=== PATIENT | male | born 1975 | race Caucasian/White ===

== ENCOUNTER 2016-09-24 08:41 | Emergency (ER) | payer BC, OTHER ==
[~2016-09-24] VITALS: Ht 170.2 cm; Wt 91.0 kg
[2016-09-24 08:52] VITALS: TEMP 36.9; Ht 170.2 cm; Wt 91.0 kg
[2016-09-24] MEDS ORDERED: IBUPROFEN 600 MG TAB PO STA (09:06)
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
[2016-09-24] MEDS ORDERED: IBUP-1050 PO (09:33)
[2016-09-24] MEDS ORDERED: OXYCODONE/ACETAMINOPHEN 5-325 TAB PO ONE ×2 (09:45→11:30)
--- NOTE | 2016-09-24 11:12 | DIAGNOSTIC IMAGING REPORT ---
RIGHT KNEE MRI HISTORY: Right medial knee pain. medial collateral ligament Right COMPARISON STUDY: None. TECHNIQUE: Multiplanar multisequence MRI of the right knee was performed according to standard department protocol without the use of contrast. FINDINGS: Menisci: The medial and lateral menisci are intact. Ligaments: The anterior and posterior cruciate ligaments are intact. The medial and lateral collateral ligaments are normal in appearance. Extensor mechanism: The quadriceps tendon and patellar ligament are intact. Articular cartilage and bone: The articular cartilage is intact. Best seen on sagittal image 7 there is a nondisplaced fracture at the lateral femoral condyle. There is also a nondisplaced fracture within the medial aspect of the medial femoral condyle. This is at the proximal attachment of the MCL. Mild marrow edema associated with these fractures. Joint effusion: Moderate lipohemarthrosis. Soft tissues: Soft tissue edema throughout the knee. IMPRESSION: 1. Nondisplaced fractures involving the medial and lateral femoral condyles. 2. Moderate lipohemarthrosis. 3. The menisci are intact. Electronically signed by: Abraham Ervin M.D. 09/24/2016 11:10 AM Dictated Date/Time: 09/24/2016 11:05 AM
[2016-09-24] MEDS ORDERED: OXYC-57 PO (12:15)
[2016-09-24 12:33] VITALS: BP 156/90; PULSE 103; O2SAT 97
== END 2016-09-24 12:34 | disposition home or self-care (01) ==
LOC: C.EDB 08:44 → C.EDA 12:34
DX: S72.414A Nondisplaced unspecified condyle fracture of lower end of right femur, initial encounter for closed fracture (principal); V43.52XA Car driver injured in collision with other type car in traffic accident, initial encounter; F17.200 Nicotine dependence, unspecified, uncomplicated

== ENCOUNTER 2020-07-27 08:39 | Inpatient (IN) ==
[2020-07-27] MEDS ORDERED: ACETAMINOPHEN 1,000 MG/100 ML VIAL IV STA (09:28)
[2020-07-27] MEDS ORDERED: SODIUM CHLORIDE 0.9% 1000ML 1,000 ML IV ONE (09:28)
[2020-07-27 10:07] LABS: Basophils # (auto) 0.01 K/uL (0-0.2); Basophils % (auto) 0.1 %; Eosinophils # (auto) 0.02 K/uL (0-0.5); Eosinophils % (auto) 0.2 %; Hematocrit (blood only) 46.4 % (42-52); Hemoglobin 16.1 g/dL (14.0-18.0); Immature Granulocytes # (auto) 0.02 K/uL (0.00-0.02); Immature Granulocytes % (auto) 0.2 %; Lymphocytes % (auto) 17.3 %; Mean Corpuscular Hemoglobin 31.6 pg (25-34); Mean Corpuscular Hgb Conc 34.7 g/dL (32-36); Mean Corpuscular Volume 91.2 fL (80-100); Mean Platelet Volume 9.9 fL (7.4-10.4); Monocytes # (auto) 1.06 K/uL (0.11-0.59); Monocytes % (auto) 10.2 %; Neutrophils # (auto) 7.51 K/uL (1.4-6.5); Platelet Count 223 K/uL (130-400); RDW Coefficient of Variation 12.5 % (11.5-14.5); RDW Standard Deviation 41.9 fL (36.4-46.3); Red Blood Count 5.09 M/uL (4.7-6.1); White Blood Count 10.42 K/uL (4.8-10.8)
[2020-07-27 10:17] LABS: Appearance Urine Clear (Clear); Bacteria Urine Automated Negative (Negative); Bilirubin Urine Negative (Negative); Blood Urine Negative (Negative); Color Urine Orange; Epithelial Cell Urine Auto 0-5 /lpf (0-5); Glucose Urine UA Negative (Negative); Ketones Urine Negative (Negative); Leukocyte Esterase Urine Negative (Negative); Nitrite Urine Negative (Negative); Protein Urine 1+ (Negative); RBC Urine Automated 0-4 /hpf (0-4); Specific Gravity Urine 1.023 (1.000-1.030); Urobilinogen Urine Negative (Negative)
[2020-07-27 10:27] LABS: BUN Creatinine Ratio 9.9 (10-20); Est GFR (African American) 87.3; Est GFR (Non-African American) 75.4
[2020-07-27 10:29] LABS: Albumin Globulin Ratio 0.9 (0.9-2); Bilirubin,Total 2.1 mg/dl (0.2-1); Globulin 4.4 gm/dl (2.5-4.0); Total Protein 8.4 gm/dl (6.4-8.2)
[2020-07-27] MEDS ORDERED: IOVERSOL 100ml IV ONE (10:30)
[2020-07-27] MEDS ORDERED: MoRPHine SULFATE 10 MG/ML CARP/VIAL IV STA (10:55)
--- NOTE | 2020-07-27 11:23 | CT Scan Report ---
CT OF THE ABDOMEN AND PELVIS WITH CONTRAST CLINICAL HISTORY: Lower abdominal pain. COMPARISON STUDY: None. TECHNIQUE: Following IV administration of 94 mL of Optiray-320, axial images of the abdomen and pelvi s were obtained from the lung bases to the proximal femurs. Images were reviewed in the axial, sagitt al, and coronal planes. IV contrast was administered without complication. Automated exposure contro l was utilized for the study. A dose lowering technique was utilized adhering to the principles of A MATI. CT DOSE: 746.55 mGy.cm FINDINGS: Minimal subpleural lower lung opacities are noted. Atelectasis is favored however an infect ious process could appear similar. No pneumatosis is present. There is hepatic steatosis. The spleen is mildly enlarged. The adrenal glands, kidneys and pancreas are unremarkable. There is no biliary or pancreatic ductal dilatation. There is no peripancreatic or pericholecystic infiltration. A subcenti meter hypodense lesion within the upper pole of the left kidney is too small to characterize. There i s no evidence for a bowel obstruction. Note is made of sigmoid diverticulosis. There is mild wall thi ckening of the sigmoid colon. There is moderate adjacent infiltration with a small amount of fluid. A few locules of extraluminal gas are noted. This represents a tiny contained perforation. No abscess is present. There are small fat-containing bilateral inguinal hernias. Major vasculature is patent. T here is no lymphadenopathy. IMPRESSION: 1. Findings consistent with acute sigmoid diverticulitis. Mild sigmoid colon wall thickening with mod erate inflammation and trace fluid. A few locules of extraluminal gas represent a tiny contained perf oration. No abscess. 2. Minimal subpleural opacities within the medial basilar segment of the right lower lobe. Atelectasi s is favored however an infectious process could appear similar. 3. Hepatic steatosis. 4. Mild splenomegaly ACT 112: Negative or not required by law. Electronically signed by: Hilario Patel M.D. 07/27/2020 11:21 AM
--- NOTE | 2020-07-27 11:32 | Emergency Department Note ---
Impression & Plan Sigmoid diverticulitis, Lower abdominal pain, Dehydration ED Provider Note NAME: SERENA PALMA AGE: 45 SEX: M ARRIVES VIA: Walk-In INFORMANT: Patient, ED PROVIDER(S): Trevor Gauthier MD CHIEF COMPLAINT: abdominal pain PLAN: Disposition: Admit. MEDICAL DECISION MAKING: The patient is a pleasant 45 y/o gentleman, previously healthy, who presents to the emergency department with worsening lower abdominal pain since yesterday. Patient reports no BM for past 2 days which is abnormal but he feels that sensation of pressure as if he needs to go. He further reports that he feels he has had weakened urine stream and urinating less then usual. He reports mild lumbar pain last week but denies having severe unilateral flank pain at any p oint. He denies nausea/vomiting, cough, congestion, CP, SOB, burning or blood with urination. He denies history of similar symptoms in the past. On arrival the patient is in NAD, AF, HR 100s and otherwise VSS. He appears clinically dry. He has mild lower abdominal tenderness with out guarding or rebound. No overt hernias appreciated. WBC, H/H, platelets wnl. Chemistry without acidosis. Total bilirubin 2.1 with direct bilirubin 0.4, nonspecific. Given no upper abd pain and AP and lipase wnl. Otherwise, LFTs and electrolytes unremarkable. UA negative. Covid19 RNA, NAAT was negative. CT abdomen pelvis performed and demonstrates sigmoid diverticulitis with few locules of extraluminal gas suggestive of tiny contained perforation. Patient ordered for Zosyn given microperforation. Findings and recommendation for admission reviewed with patient and he agrees. Case reviewed with SUYAPA Anderson general surgery PAC who agrees with medicine admission and treatment with IV ABX. They will be available for inpatient team consultation. Case d[facility]w Radha Diane [facility] Triage Nursing notes reviewed and agree them. Prior medical records reviewed Vital Signs: reviewed and remarkable for no significant abnormalities Differential diagnosis: Appendicitis, testicular torsion, infections, diverticulitis, UTI, obstruction, mesenteric ischemia, aortic pathology, inflammatory bowel disease, renal colic, PUD, pancreatitis, biliary pathology, hernia, volvulus, constipation, as well as other pathologies. ER treatment provided: See below. Diagnostics interpreted by me: Cardiac Monitoring: An order for continuous cardiac monitoring was placed and demonstrated NSR, 94 bpm, no ectopy. Laboratory studies: See below Imaging studies: CT OF THE ABDOMEN AND PELVIS WITH CONTRAST CLINICAL HISTORY: Lower abdominal pain. COMPARISON STUDY: None. TECHNIQUE: Following IV administration of 94 mL of Optiray-320, axial images of the abdomen and pelvis were obtained from the lung bases to the proximal femurs. Images were reviewed in the axial, sagittal, and coronal planes. IV contrast was administered without complication. Automated exposure control was utilized for the study. A dose lowering technique was utilized adhering to the principles of ALARA. CT DOSE: 746.55 mGy.cm FINDINGS: Minimal subpleural lower lung opacities are noted. Atelectasis is favored however an infectious process could appear similar. No pneumatosis is present. There is hepatic steatosis. The spleen is mildly enlarged. The adrenal glands, kidneys and pancreas are unremarkable. There is no biliary or pancreatic ductal dilatation. There is no peripancreatic or pericholecystic infiltration. A subcentimeter hypodense lesion within the upper pole of the left kidney is too small to characterize. There is no evidence for a bowel obstruction. Note is made of sigmoid diverticulosis. There is mild wall thickening of the sigmoid colon. There is moderate adjacent infiltration with a small amount of fluid. A few locules of extraluminal gas are noted. This represents a tiny contained perforation. No abscess is present. There are small fat-containing bilateral inguinal hernias. Major vasculature is patent. There is no lymphadenopathy. IMPRESSION: 1. Findings consistent with acute sigmoid diverticulitis. Mild sigmoid colon wall thickening with moderate inflammation and trace fluid. A few locules of extraluminal gas represent a tiny contained perforation. No abscess. 2. Minimal subpleural opacities within the medial basilar segment of the right lower lobe. Atelectasis is favored however an infectious process could appear similar. 3. Hepatic steatosis. 4. Mild splenomegaly ACT 112: Negative or not required by law. Electronically signed by: Hilario Patel M.D. 07/27/2020 11:21 AM Dictated: 07/27/201055Transcribed: 07/27/201055 Consultation(s): Carlin Abel, [place] general surgery PAC Devora Loyola [facility] PAC with Dr. Mills [facility] hospitalist. HPI: The patient is a pleasant 45 y/o gentleman, previously healthy, who presents to the emergency department with worsening lower abdominal pain since yesterday. Patient reports no BM for past 2 days which is abnormal but he feels that sensation of pressure as if he needs to go. He further reports that he feels he has had weakened urine stream and urinating less then usual. He reports mild lumbar pain last week but denies having severe unilateral flank pain at any point. He denies nausea/vomiting, cough, congestion, CP, SOB, burning or blood with urination. He denies history of similar symptoms in the past. ROS: See above HPI for pertinent positives & negatives. A total of 10 systems reviewed and were otherwise negative. PAST MEDICAL HISTORY:See Below PAST SURGICAL HISTORY:See Below FAMILY HISTORY:See Below SOCIAL HISTORY:See Below HOME MEDICATIONS:See Below ALLERGIES:See Below VITALS:See Below PHYSICAL EXAMINATION: GENERAL: Awake, alert, uncomfortable-appearing, in no distress HENT: Normocephalic, atraumatic. Oropharynx with dry mucous membranes and otherwise unremarkable. EYES: Normal conjunctiva. Sclera non-icteric. NECK: Supple. No nuchal rigidity. FROM. No JVD. RESPIRATORY: Clear to auscultation. CARDIAC: Tachycardic rate, normal rhythm. Extremities warm and well perfused. Pulses equal. ABDOMEN: Soft, non-distended. Mild lower abdominal tenderness to palpation. No rebound or guarding. No masses. RECTAL: Deferred. MUSCULOSKELETAL: Chest examination reveals no tenderness. The back is symmetrical on inspection without obvious abnormality. There is no CVA tenderne ss to palpation. No joint edema. LOWER EXTREMITIES: Calves are equal size bilaterally and non-tender. No edema. No discoloration. NEURO: Normal sensorium. No sensory or motor deficits noted. SKIN: No rash or jaundice noted. Trevor Gauthier MD Past Med/Surg History Medical History Alcohol use No known health problems Surgical History No significant past surgical history Family History Father Heart disease Mother Colorectal cancer Social History Smoking Status: Current every day smoker Tobacco Type: Smokeless Tobacco (Dip or Chew) Do You Dip or Chew Tobacco: Yes; Hx Alcohol Use: Yes Alcohol type: beer Alcohol Intake Frequency: 2-3 x/Week A lcohol Intake Frequency Comment: up to 6 pack a night 2-3x/week Hx Substance Use: No Preferred Language: Hebrew Communication Ability: Effective [place] Tower Loader Required: No Beliefs That Will Affect Care: None Current Living Situation: Spouse Other Information That Helps Us Care for You: No Feels Safe at Home: Yes Safety Concerns: Feels Safe At This Time Assistive Devices: None Allergies Allergies Allergy/AdvReac Type Severity Reaction Status Date / Time No Known Allergies Allergy Unverified 09/24/16 09:32 Home Meds Home Medications Medication Instructions Recorded Confirmed benzonatate 100 mg PO DAILY 07/27/20 07/27/20 Results & Data (ED) Vital Signs Vital Signs - 24 hr 07/27/20 08:57 07/27/20 09:45 07/27/20 09:50 Temperature 37.2 C Temperature Source Temporal Artery Scan Pulse Rate 106 H 98 H Pulse Rate from SpO2 Sensor Respiratory Rate 16 14 Respiratory Effort / Characteristics Non-Labored Spontaneous Respiratory Depth Normal Respiratory Pattern Regular Blood Pressure 115/78 128/69 Blood Pressure Mean 90 88 Blood Pressure Position Sitting Pulse Oximetry 96 95 Oxygen Delivery Method Room Air Room Air Sepsis Recent Fever Within 48 Hours No Sepsis New/Unexplained Change in Mental Status No Sepsis Action Taken by Nursing No Action Required 07/27/20 10:00 07/27/20 11:06 07/27/20 11:30 Temperature Temperature Source Pulse Rate 104 H 91 H 85 Pulse Rate from SpO2 Sensor 104 H 91 H 87 Respiratory Rate 23 21 20 Respiratory Effort / Characteristics Respiratory Depth Respiratory Pattern Blood Pressure 153/102 H 139/83 118/79 Blood Pressure Mean 119 101 92 Blood Pressure Position Pulse Oximetry 95 96 96 Oxygen Delivery Method Sepsis Recent Fever Within 48 Hours Sepsis New/Unexplained Change in Mental Status Sepsis Action Taken by Nursing 07/27/20 12:00 07/27/20 12:30 Temperature Temperature Source Pulse Rate 100 H 97 H Pulse Rate from SpO2 Sensor 101 H 97 H Respiratory Rate 16 17 Respiratory Effort / Characteristics Respiratory Depth Respiratory Pattern Blood Pressure 149/105 H 131/83 Blood Pressure Mean 119 99 Blood Pressure Position Pulse Oximetry 96 95 Oxygen Delivery Method Sepsis Recent Fever Within 48 Hours Sepsis New/Unexplained Change in Mental Status Sepsis Action Taken by Nursing Laboratory Data Attestation: I reviewed the patient's lab results. Result diagrams: 07/27/20 09:55 07/27/20 09:55 Lab Results 07/27/20 07/27/20 07/27/20 Range/Units 09:50 09:55 09:55 WBC 10.42 (4.8-10.8) K/uL RBC 5.09 (4.7-6.1) M/uL Hgb 16.1 (14.0-18.0) g/dL Hct 46.4 (42-52) % MCV 91.2 (80-100) fL MCH 31.6 (25-34) pg MCHC 34.7 (32-36) g/dL RDW Std Deviation 41.9 (36.4-46.3) fL RDW Coeff of Narciso 12.5 (11.5-14.5) % Plt Count 223 (130-400) K/uL MPV 9.9 (7.4-10.4) fL Immature Gran % (Auto) 0.2 % Neut % (Auto) 72.0 % Lymph % (Auto) 17.3 % [place] % (Auto) 10.2 % Eos % (Auto) 0.2 % Baso % (Auto) 0.1 % Neut # (Auto) 7.51 H (1.4-6.5) K/uL Lymph # (Auto) 1.80 (1.2-3.4) K/uL [place] # (Auto) 1.06 H (0.11-0.59) K/uL Eos # (Auto) 0.02 (0-0.5) K/uL Baso # (Auto) 0.01 (0-0.2) K/uL Immature Gran # (Auto) 0.02 (0.00-0.02) K/uL Sodium 139 (136-145) mmol/L Potassium 4.0 (3.5-5.1) mmol/L Chloride 110 H (98-107) mmol/L Carbon Dioxide 25 (21-32) mmol/L Anion Gap 4.0 (3-11) BUN 11 (7-18) mg/dl Creatinine 1.15 (0.6-1.4) mg/dl Est Cr Clr Drug Dosing 89.0 ml/min Est GFR ( Amer) 87.3 Est GFR (Non-Af Amer) 75.4 BUN/Creatinine Ratio 9.9 L (10-20) Glucose 97 (70-99) mg/dl Calcium 10.0 (8.5-10.1) mg/dl Total Bilirubin 2.1 H (0.2-1) mg/dl Direct Bilirubin (0-0.2) mg/dl AST 16 (15-37) U/L ALT 41 (12-78) U/L Alkaline Phosphatase 111 (45-117) U/L Total Protein 8.4 H (6.4-8.2) gm/dl Albumin 4.0 (3.4-5.0) gm/dl Globulin 4.4 H (2.5-4.0) gm/dl Albumin/Globulin Ratio 0.9 (0.9-2) Lipase 105 (73-393) U/L Urine Color [place] Urine Appearance Clear (Clear) Urine pH 7.0 (4.5-7.5) Ur Specific [place] 1.023 (1.000-1.030) Urine Protein 1+ H (Negative) Urine Glucose (UA) Negative (Negative) Urine Ketones Negative (Negative) Urine Blood Negative (Negative) Urine Nitrite Negative (Negative) Urine Bilirubin Negative (Negative) Urine Urobilinogen Negative (Negative) Ur Leukocyte Esterase Negative (Negative) Urine WBC (Auto) 1-5 (0-5) /hpf Urine RBC (Auto) 0-4 (0-4) /hpf U Hyaline Cast (Auto) 1-5 (0-5) /lpf U Epithel Cells (Auto) 0-5 (0-5) /lpf Urine Bacteria (Auto) Negative (Negative) COVID-19 Eval Order SARS-CoV-2, RNA, NAAT (NEGATIVE) 07/27/20 07/27/20 07/27/20 Range/Units 09:55 11:45 11:45 WBC (4.8-10.8) K/uL RBC (4.7-6.1) M/uL Hgb (14.0-18.0) g/dL Hct (42-52) % MCV (80-100) fL MCH (25-34) pg MCHC (32-36) g/dL RDW Std Deviation (36.4-46.3) fL RDW Coeff of Narciso (11.5-14.5) % Plt Count (130-400) K/uL MPV (7.4-10.4) fL Immature Gran % (Auto) % Neut % (Auto) % Lymph % (Auto) % [place] % (Auto) % Eos % (Auto) % Baso % (Auto) % Neut # (Auto) (1.4-6.5) K/uL Lymph # (Auto) (1.2-3.4) K/uL [place] # (Auto) (0.11-0.59) K/uL Eos # (Auto) (0-0.5) K/uL Baso # (Auto) (0-0.2) K/uL Immature Gran # (Auto) (0.00-0.02) K/uL Sodium (136-145) mmol/L Potassium (3.5-5.1) mmol/L Chloride (98-107) mmol/L Carbon Dioxide (21-32) mmol/L Anion Gap (3-11) BUN (7-18) mg/dl Creatinine (0.6-1.4) mg/dl Est Cr Clr Drug Dosing ml/min Est GFR ( Amer) Est GFR (Non-Af Amer) BUN/Creatinine Ratio (10-20) Glucose (70-99) mg/dl Calcium (8.5-10.1) mg/dl Total Bilirubin (0.2-1) mg/dl Direct Bilirubin 0.4 H (0-0.2) mg/dl AST (15-37) U/L ALT (12-78) U/L Alkaline Phosphatase (45-117) U/L Total Protein (6.4-8.2) gm/dl Albumin (3.4-5.0) gm/dl Globulin (2.5-4.0) gm/dl Albumin/Globulin Ratio (0.9-2) Lipase (73-393) U/L Urine Color Urine Appearance (Clear) Urine pH (4.5-7.5) Ur Specific [place] (1.000-1.030) Urine Protein (Negative) Urine Glucose (UA) (Negative) Urine Ketones (Negative) Urine Blood (Negative) Urine Nitrite (Negative) Urine Bilirubin (Negative) Urine Urobilinogen (Negative) Ur Leukocyte Esterase (Negative) Urine WBC (Auto) (0-5) /hpf Urine RBC (Auto) (0-4) /hpf U Hyaline Cast (Auto) (0-5) /lpf U Epithel Cells (Auto) (0-5) /lpf Urine Bacteria (Auto) (Negative) COVID-19 Eval Order Covid19 IDNow atMPAC SARS-CoV-2, RNA, NAAT NEGATIVE (NEGATIVE) Administered Medications Sodium Chloride (Nss 1000ml) 1,000 mls @ 125 mls/hr IV .Q8H MART Stop: 08/26/20 11:44 Last Admin: 07/27/20 11:50 Dose: 125 mls/hr Documented by: [id number] Acetaminophen (Ofirmev) 1,000 mg in 100 mls @ 400 mls/hr IV Q8H PRN PRN Reason: Pain or Fever Stop: 07/30/20 13:44 Last Admin: 07/27/20 20:38 Dose: 400 mls/hr Documented by: [id number] Piperacillin Sod/Tazobactam (Sod 3.375 gm/ Dextrose) 115 mls @ 28.75 mls/hr IV Q8H MART; Protocol Stop: 08/06/20 15:59 Last Infusion: 07/27/20 20:38 Dose: 0 mls/hr Documented by: [id number] Admin: 07/27/20 16:19 Dose: 28.8 mls/hr Documented by: [id number] Discontinued Medications Hydromorphone HCl (Hydromorphone Inj 1 Mg/Ml Syringe) 1 mg IV NOW STA Stop: 07/27/20 11:49 Last Admin: 07/27/20 11:55 Dose: 1 mg Documented by: [id number] Hydromorphone HCl (Hydromorphone Inj 0.5 Mg/0.5 Ml Syr) 0.5 mg IV Q4H PRN PRN Reason: Pain Stop: 08/10/20 13:44 Last Admin: 07/27/20 18:24 Dose: 0.5 mg Documented by: [id number] Admin: 07/27/20 14:08 Dose: 0.5 mg Documented by: [id number] Sodium Chloride (Nss 1000ml) 1,000 mls @ 999 mls/hr IV .Q1H1M ONE Stop: 07/27/20 10:28 Last Infusion: 07/27/20 11:05 Dose: 0 mls/hr Documented by: [id number] Admin: 07/27/20 09:56 Dose: 999 mls/hr Documented by: [id number] Acetaminophen (Ofirmev) 1,000 mg in 100 mls @ 400 mls/hr IV NOW STA Stop: 07/27/20 09:42 Last Infusion: 07/27/20 10:20 Dose: 0 mls/hr Documented by: [id number] Admin: 07/27/20 10:01 Dose: 400 mls/hr Documented by: [id number] Piperacillin Sod/Tazobactam Sod (Zosyn) 4.5 gm in 120 mls @ 240 mls/hr IV NOW ONE Stop: 07/27/20 12:02 Last Infusion: 07/27/20 12:30 Dose: 0 mls/hr Documented by: [id number] Admin: 07/27/20 11:50 Dose: 240 mls/hr Documented by: [id number] Ioversol (Ioversol 100ml) 94 ml IV ONCE ONE Stop: 07/27/20 10:31 Last Admin: 07/27/20 10:30 Dose: 94 ml Documented by: [id number] Morphine Sulfate (Morphine Sulfate 10 Mg/Ml Carp/Vial) 8 mg IV NOW STA Stop: 07/27/20 10:56 Last Admin: 07/27/20 11:01 Dose: 8 mg Documented by: [id number] Discharge Plan Visit Data Chief Complaint: Abdominal Pain Stated Complaint: ABD PAIN FOR 2 DAYS ED Provider: Trevor Gauthier Discharge Problem: Sigmoid diverticulitis, Lower abdominal pain, Dehydration Patient Disposition: Admitted As Inpatient Discharge Instructions Interventions: ED Discharge Assessment Last Done: 07/27/20 13:28
[2020-07-27] MEDS ORDERED: PIPERACILLIN/TAZOBACTAM 4.5 GM/120 ML BAG IV ONE (11:33)
[2020-07-27] MEDS ORDERED: PIPERACILL/TAZOBAC CONSULT ACTIVE PRN (11:33)
[2020-07-27] MEDS ORDERED: HYDROmorphone INJ 1 MG/ML SYRINGE IV STA (11:48)
[2020-07-27] MEDS: SODIUM CHLORIDE 0.9% 1000ML 1,000 ML IV SCH (11:50)
--- NOTE | 2020-07-27 12:55 | History & Physical Report ---
Date of Service July 27, 2020 Assessment & Plan (1) Acute diverticulitis: This is a 45yo M with no known PMH presenting with lower abdominal pain since yesterday morning and was found to have acute sigmoid diverticulitis. Afebrile and hemodynamically stable No leukocytosis, hemoglobin stable at 16. T bili 2.1 with T bili 0.4. Covid screen negative CT abdomen pelvis with findings consistent with acute sigmoid diverticulitis. Mild sigmoid colon wall thickening with moderate inflammation and trace fluid. A few locules of extraluminal gas represent a tiny contained perforation. No abscess Discussed with general surgery, who recommend starting with conservative management with IV antibiotics Continue IV fluids, IV Zosyn, stool cx, c diff and pain control General surgery consulted - will keep NPO until evaluated (2) Alcohol use: Endorses drinking up to 6 beers 2-3x/week, no history of withdrawal symptoms DIANA protocol, at risk Ativan PRN DVT Ppx: SCDs Code status: FULL PCP: Suzy [place]) Dispo: Admitted to med/surg. Plan to return home once medically stable. Patient seen in collaboration with Dr. Mills. Please see addendum. History of Present Illness Chief Complaint: lower abd pain Primary Care Provider: NO PCP This is a 45yo M with no known PMH presenting with lower abdominal pain since yesterday morning. Pain is located in central lower abdomen and increases urge for defecation the patient has not had bowel movement. Pain is sharp and intermittent. Improved with pain medication given in ED but now pain back to 7/10. No fever or chills. No nausea or vomiting. No hematochezia. Increased urgency for urination as well. Denies any previous bouts of diverticulitis in the past. No history of abdominal surgeries. Does not take any home medications regularly. Denies headache, lightheadedness, cough, myalgias, chest pain, palpitations or shortness of breath. Patient is afebrile and hemodynamically stable. No leukocytosis, hemoglobin stable at 16. T bili 2.1 with T bili 0.4. UA unremarkable. Covid screen negative. CT abdomen pelvis with findings consistent with acute sigmoid diverticulitis. Mild sigmoid colon wall thickening with moderate inflammation and trace fluid. A few locules of extraluminal gas represent a tiny contained perforation. No abscess. ED physician discussed with general surgery, who recommend starting with conservative management with IV antibiotics. Will continue IV fluids, IV Zosyn and pain control with general surgery consult placed. Allergies Allergy/AdvReac Type Severity Reaction Status Date / Time No Known Allergies Allergy Unverified 09/24/16 09:32 Home Medications Medication Instructions Recorded Confirmed Type benzonatate 100 mg PO DAILY 07/27/20 07/27/20 History tramadol 50 mg PO Q8H PRN #5 tab 07/29/20 Rx Past Med/Surg History Medical History Alcohol use No known health problems Surgical History No significant past surgical history Family History Father Heart disease Mother Colorectal cancer Social History Smoking Status: Current every day smoker Tobacco Type: Smokeless Tobacco (Dip or Chew) Hx Alcohol Use: Yes Alcohol type: beer Alcohol Intake Frequency: 2-3 x/Week Alcohol Intake Frequency Comment: up to 6 pack a night 2-3x/week Hx Substance Use: No Preferred Language: Guyanese Communication Ability: Effective Magnetic Tape Composer Operator Required: No Beliefs That Will Affect Care: None Current Living Situation: Spouse Feels Safe at Home: Yes Assistive Devices: None Review of Systems Review of Systems: At least ten systems reviewed and negative except as noted in the HPI. Physical Exam Physical Exam: General Appearance: WD/WN, vitals as above, intermittent pain, sitting up in bed, pleasant, conversing easily Head: normocephalic, atraumatic Eyes: normal inspection, PERRL, conjunctivae normal, anicteric sclerae ENT: external ear and nose normal, oropharynx normal Neck: normal visual inspection, trachea midline, no thyromegaly Respiratory: normal respiratory effort, lungs clear to auscultation, no wheeze, rales, rhonchi. No accessory muscle use Cardiovascular: regular rate, rhythm, no murmur, normal peripheral pulses, no BLE edema. Vessels: no JVD Chest: normal inspection of chest Abdomen/GI: hypoactive bowel sounds, soft but TTP in RLQ and LLQ, no hepatosplenomegaly Extremities/Musculoskeletal: no cyanosis or clubbing, extremities motor strength 5/5 Neurologic: PERRL, EOMI, accommodation nl, no face palsy, no dysarthria, CN's II-XI intact bilaterally and moves all extremities Psychiatric: A+Ox3, euthymic affect Skin: no rashes, normal color, warm/dry Results & Data Results & Data ([facility]) Vital Signs (Past 12 Hours) Vital Signs Temp Pulse Resp BP Pulse Ox 07/27/20 09:50 95 07/27/20 08:57 37.2 C 106 H 16 115/78 96 Laboratory Results Short CBC 07/27/20 Range/Units 09:55 WBC 10.42 (4.8-10.8) K/uL Hgb 16.1 (14.0-18.0) g/dL Hct 46.4 (42-52) % Plt Count 223 (130-400) K/uL BMP 07/27/20 09:55 Sodium 139 Potassium 4.0 Chloride 110 H Carbon Dioxide 25 BUN 11 Creatinine 1.15 Glucose 97 Calcium 10.0 Liver Function 07/27/20 07/27/20 Range/Units 09:55 09:55 Total Bilirubin 2.1 H (0.2-1) mg/dl Direct Bilirubin 0.4 H (0-0.2) mg/dl AST 16 (15-37) U/L ALT 41 (12-78) U/L Alkaline Phosphatase 111 (45-117) U/L Albumin 4.0 (3.4-5.0) gm/dl Urine 07/27/20 Range/Units 09:50 Urine Color [place] Urine Appearance Clear (Clear) Urine pH 7.0 (4.5-7.5) Ur Specific [place] 1.023 (1.000-1.030) Urine Protein 1+ H (Negative) Urine Glucose (UA) Negative (Negative) Diagnostic Findings CT abd/pelvis: 1. Findings consistent with acute sigmoid diverticulitis. Mild sigmoid colon wall thickening with moderate inflammation and trace fluid. A few locules of extraluminal gas represent a tiny contained perforation. No abscess. 2. Minimal subpleural opacities within the medial basilar segment of the right lower lobe. Atelectasis is favored however an infectious process could appear similar. Code Status & VTE Plan VTE Prophylaxis Plan VTE Prophylaxis will be ordered: Yes Supervising Physician Co-Signing Physician Notes Pt was seen and examined. Agreed with Devora POND exam, assessment and plan. 45yo M with no known PMH presenting with lower abdominal pain since yesterday morning. Pt said that his abdominal pain is worsening today. He described pain is sharp and intermittent, located in mid abdominal area. He said that he had an urge to defecate, but has not had a bowel movement yet. He said that he never had any episode like that in the past. He said that pain improved after received pain med in the ER. Denies any nausea, vomiting, hematochezia, headache, light headedness, cough, myalgias, chest pain, palpitations or shortness of breath. CT abdomen showed findings consistent with acute sigmoid diverticulitis. Mild sigmoid colon wall thickening with moderate inflammation and trace fluid. A few locules of extraluminal gas represent a tiny contained perforation. No abscess. received IVF and IV abx in the ER with Zosyn. Surgery consulted that recommended conservative management with IVF, IV abx with Zosyn and pain control. Will keep NPO. Pt said that he drinks couple beers 2-3x weekly. Will monitor for alcohol withdrawal. Continue monitor closely. MD Lina
[2020-07-27] MEDS ORDERED: ACETAMINOPHEN 1,000 MG/100 ML VIAL IV PRN (13:45)
[2020-07-27] MEDS ORDERED: ACETAMINOPHEN 325 MG TAB PO PRN (13:45)
[2020-07-27] MEDS ORDERED: ONDANSETRON INJ 2 MG/ML 2 ML VIAL IV PRN (13:45)
[2020-07-27] MEDS ORDERED: LORazepam 1 MG/2 ML VIAL IV PRN (13:55)
[2020-07-27] MEDS: HYDROmorphone INJ 0.5 MG/0.5 ML SYR IV PRN ×2 (14:08→18:24)
--- NOTE | 2020-07-27 14:19 | Surgery Consultation ---
Date of Consultation July 27, 2020 Assessment & Plan (1) Sigmoid diverticulitis: No acute abdominal findings, Zosyn started, keep npo for tonight. Will follow along. History of Present Illness Attending Physician: Daryl Mills MD History of Present Illness 45 y/o male with lower abdominal pain that began Monday night, continued into Monday and felt constipated. Did not have much appetite during the day and last night developed hot and cold flashes. This is his first episode of diverticulitis, no previous surgery. Allergies Allergy/AdvReac Type Severity Reaction Status Date / Time No Known Allergies Allergy Unverified 09/24/16 09:32 Home Medications Medication Instructions Recorded Confirmed Type benzonatate 100 mg PO DAILY 07/27/20 07/27/20 History Patient History Medical History Alcohol use No known health problems Surgical History No significant past surgical history Family History Father Heart disease Mother Colorectal cancer Social History Smoking Status: Current every day smoker Tobacco Type: Smokeless Tobacco (Dip or Chew) Hx Alcohol Use: Yes Alcohol Intake Frequency: 2-3 x/Week Alcohol Intake Frequency Comment: up to 6 pack a night 2-3x/week Hx Substance Use: No Preferred Language: Moldovan Feels Safe at Home: Yes Review of Systems Constitutional: + fever, + chills and + anorexia Gastrointestinal: + bloating, + nausea and + constipation; no vomiting and no change in bowel habits Physical Exam Constitutional: WD/WN, vitals as above Respiratory: normal respiratory effort Cardiovascular: Rate/Rhythm: + tachycardic Gastrointestinal (Abdomen): Inspection/Auscultation: abdomen not distended Percussion/Palpation: + abdomen tender (moderate LLQ) and abdomen soft Results & Data ([facility]) Vital Signs (Past 12 Hours) Vital Signs Temp Pulse Pulse Resp BP BP Pulse Ox 07/27/20 13:48 36.9 C 92 H 16 134/89 95 02/15/21 13:00 99 H 21 122/86 95 07/27/20 12:30 97 H 17 131/83 95 07/27/20 12:00 100 H 16 149/105 H 96 07/27/20 11:30 85 20 118/79 96 07/27/20 11:06 91 H 21 139/83 96 07/27/20 10:00 104 H 23 153/102 H 95 07/27/20 09:50 95 07/27/20 09:45 98 H 14 128/69 07/27/20 08:57 37.2 C 106 H 16 115/78 96 PG Care Time/CCT Total # of Minutes Spent Total Time Spent with Patient: Total time spent is greater than 50% in coordination of care (as documented) at patient's floor/unit and/or counseling patient: Coding Level of Care Code 85334 Inpt Consult Level 3 Diagnoses Sigmoid diverticulitis K57.32
[2020-07-27] MEDS: PIPERACILLIN/TAZOBACTAM 3.375 GM in DEXTROSE 5% 100 ML IV SCH (16:19)
[2020-07-27] MEDS ORDERED: KETOROLAC 30 MG/ML VIAL IV ONE (20:36)
[2020-07-27] MEDS ORDERED: LORazepam 0.25 MG/0.5 ML VIAL IV PRN (20:50)
[2020-07-28] MEDS: PIPERACILLIN/TAZOBACTAM 3.375 GM in DEXTROSE 5% 100 ML IV SCH ×4 (00:08→23:25)
[2020-07-28] MEDS: SODIUM CHLORIDE 0.9% 1000ML 1,000 ML IV SCH ×5 (00:08→23:25)
[2020-07-28 06:39] LABS: Hematocrit (blood only) 40.3 % (42-52); Hemoglobin 13.3 g/dL (14.0-18.0); Mean Corpuscular Hemoglobin 30.4 pg (25-34); Mean Corpuscular Volume 92.2 fL (80-100); Mean Platelet Volume 9.9 fL (7.4-10.4); Platelet Count 207 K/uL (130-400); RDW Coefficient of Variation 12.3 % (11.5-14.5); RDW Standard Deviation 41.8 fL (36.4-46.3); Red Blood Count 4.37 M/uL (4.7-6.1)
[2020-07-28 07:08] LABS: BUN Creatinine Ratio 9.9 (10-20); Calcium 9.7 mg/dl (8.5-10.1); Creatinine Clr Calc Pharmacy 83.2 ml/min; Est GFR (African American) 80.5; Est GFR (Non-African American) 69.5; Potassium 4.1 mmol/L (3.5-5.1)
[2020-07-28 07:20] LABS: Albumin Globulin Ratio 0.8 (0.9-2); Bilirubin,Total 1.8 mg/dl (0.2-1); Globulin 3.8 gm/dl (2.5-4.0); Total Protein 6.8 gm/dl (6.4-8.2)
--- NOTE | 2020-07-28 07:38 | Surgery Progress Note ---
Date of Service July 28, 2020 Assessment & Plan (1) Sigmoid diverticulitis: improved WBC normal start clears cont Zosyn as above. clinically imroving. will need colonoscopy in a couple months as an out-pt slowly advance diet Admission and Anticipated Discharge Date Admission Date: July 27, 2020 Subjective feels better, slept some, no fever/chills Physical Exam Gastrointestinal (Abdomen): Percussion/Palpation: + abdomen tender (less) and abdomen soft Results & Data ([facility]) Vital Signs (Past 12 Hours) Vital Signs Temp Pulse Resp BP Pulse Ox 07/27/20 22:43 37.2 C 87 16 124/81 93 PG Care Time/CCT Total # of Minutes Spent Total Time Spent with Patient: Total time spent is greater than 50% in coordination of care (as documented) at patient's floor/unit and/or counseling patient: Coding Level of Care Code 17155 Subseq Hosp Care Lvl 2 Diagnoses Sigmoid diverticulitis K57.32
[2020-07-28] MEDS: HYDROmorphone INJ 0.5 MG/0.5 ML SYR IV PRN ×3 (10:19→20:50)
--- NOTE | 2020-07-28 15:12 | Hospitalist Progress Note ---
Date of Service July 28, 2020 Assessment & Plan (1) Acute diverticulitis: 45 Yo male with no significant PMH present to the ER for severe abdominal pain CT abdomen/pelvis showed findings consistent with acute sigmoid diverticulitis. Mild sigmoid colon wall thickening with moderate inflammation and trace fluid. A few locules of extraluminal gas represent a tiny contained perforation. WBC normal Continue IV Zosyn and IVF Surgery on board recommended conservative management with IV antibiotic Starting on clear liquid diet Pt would like to go home today Will advance diet to full liquid Will need colonoscopy in 6 to 8 weeks If pt decides to go home today, will transition to flagyl and cipro for 7 days (2) Alcohol use: Drinking up to 6 beers 2-3x/week No history of withdrawal symptoms Currently no sign of alcohol discharge DVT Ppx: SCDs Code status: FULL PCP: Suzy [place]) Dispo: Possible discharge home today Admission and Anticipated Discharge Date Admission Date: July 27, 2020 Subjective Pt was seen and examined for follow up abdominal pain Sitting in chair with no distress Pt said that he feels much better and tolerated clear liquid diet He said that he wants to go home today He does not want to spend another night in the hospital Denies any chest pain, palpitation, dizziness and SOB Review of Systems Review of Systems: All systems reviewed & are unremarkable except as noted in Subjective Physical Exam Physical Exam: General- No acute distress Head- atraumatic Eyes- PERRL, EOMI, ENT- oropharynx clear Neck- supple, no JVD Lungs- clear to auscultation Heart- regular rhythm; no murmur Abdomen- normal bowel sounds, soft, nontender Extremities- no calf tenderness Neuro- alert, oriented x 3; PERRL, EOMI; no facial palsy; no dysarthria Skin- warm & dry Results & Data Results & Data ([facility]) Vital Signs (Past 12 Hours) Vital Signs Temp Pulse Resp BP Pulse Ox 07/28/20 07:38 36.5 C 82 16 133/84 96
[2020-07-29] MEDS: HYDROmorphone INJ 0.5 MG/0.5 ML SYR IV PRN ×2 (00:39→04:31)
[2020-07-29 06:41] LABS: Hematocrit (blood only) 39.6 % (42-52); Hemoglobin 13.5 g/dL (14.0-18.0); Mean Corpuscular Hemoglobin 31.5 pg (25-34); Mean Corpuscular Hgb Conc 34.1 g/dL (32-36); Mean Corpuscular Volume 92.3 fL (80-100); Mean Platelet Volume 9.8 fL (7.4-10.4); Platelet Count 238 K/uL (130-400); RDW Coefficient of Variation 12.2 % (11.5-14.5); RDW Standard Deviation 41.1 fL (36.4-46.3); Red Blood Count 4.29 M/uL (4.7-6.1); White Blood Count 7.02 K/uL (4.8-10.8)
[2020-07-29 07:15] LABS: Albumin Level 3.1 gm/dl (3.4-5.0); BUN Creatinine Ratio 6.4 (10-20); Calcium 9.5 mg/dl (8.5-10.1); Est GFR (African American) 83.8; Est GFR (Non-African American) 72.3; Potassium 3.6 mmol/L (3.5-5.1)
[2020-07-29 07:29] LABS: Albumin Globulin Ratio 0.7 (0.9-2); Bilirubin,Total 1.2 mg/dl (0.2-1); Globulin 4.2 gm/dl (2.5-4.0); Total Protein 7.3 gm/dl (6.4-8.2)
[2020-07-29] MEDS: PIPERACILLIN/TAZOBACTAM 3.375 GM in DEXTROSE 5% 100 ML IV SCH (07:40)
--- NOTE | 2020-07-29 07:58 | Surgery Progress Note ---
Date of Service July 29, 2020 Assessment & Plan (1) Sigmoid diverticulitis: Patient here with sigmoid diverticulitis WBC 7, VSS and patient afebrile Abdominal discomfort & symptoms much improved He has been tolerating a full liquid diet. Having + bowel function. Okay to trial low fiber this AM If does well can consider discharge to home today, will need to complete a course of po abx at home Recommend colonoscopy as an outpatient in a couple months Admission and Anticipated Discharge Date Admission Date: July 27, 2020 Subjective Patient states he is feeling well. Has some abdominal discomfort, more noticeable when he has a BM, but states it is much improved since admission and is manageable. He is tolerating full liquid diet and denies nausea/vomiting. He is passing flatus and having BM's. Physical Exam Physical Exam: awake/alert Respiratory: normal respiratory effort Gastrointestinal (Abdomen): Inspection/Auscultation: + abdomen distended (mild) Percussion/Palpation: + abdomen tender (lower abdominal ttp improving) and abdomen soft Results & Data ([facility]) Vital Signs (Past 12 Hours) Vital Signs Temp Pulse Resp BP Pulse Ox 07/28/20 21:56 36.7 C 90 16 122/80 95 PG Care Time/CCT Total # of Minutes Spent Total Time Spent with Patient: Total time spent is greater than 50% in coordination of care (as documented) at patient's floor/unit and/or counseling patient: Coding Level of Care Code 33999 Subseq Hosp Care Lvl 1 Diagnoses Sigmoid diverticulitis K57.32
[2020-07-29] MEDS ORDERED: POTASSIUM CHLORIDE CRTAB 20 MEQ TABCR PO STA (08:03)
--- NOTE | 2020-07-29 08:03 | Hospitalist Progress Note ---
Date of Service July 29, 2020 Assessment & Plan (1) Acute diverticulitis: 45 Yo male with no significant PMH present to the ER for severe abdominal pain CT abdomen/pelvis showed findings consistent with acute sigmoid diverticulitis. Mild sigmoid colon wall thickening with moderate inflammation and trace fluid. A few locules of extraluminal gas represent a tiny contained perforation. WBC normal Continued IV Zosyn and IVF while inpt Surgery on board recommended conservative management with IV antibiotic Tolerated diet today (low fiber for breakfast) Pt would like to go home today Will need colonoscopy in 6 to 8 weeks Continue flagyl and cipro for 7 days Follow up w/ PCP and with general surgery (2) Alcohol use: Drinking up to 6 beers 2-3x/week No history of withdrawal symptoms Currently no sign of alcohol discharge DVT Ppx: SCDs Code status: FULL PCP: Suzy [place]) Dispo: discharge home today Admission and Anticipated Discharge Date Admission Date: July 27, 2020 Subjective Patient seen in follow up of acute diverticulitis He is feeling well and is eager to be discharged home He had low fiber breakfast this AM, tolerated well Has some abdominal discomfort, after a BM, but states it is much improved since admission No fever, chills, nausea or vomiting Review of Systems Review of Systems: All systems reviewed & are unremarkable except as noted in HPI & below Constitutional: no fever and no chills Respiratory: no cough and no dyspnea Cardiovascular: no chest pain and no palpitations Gastrointestinal: + abdominal pain (much improved); no nausea and no vomiting Physical Exam Physical Exam: General- No acute distress Head- atraumatic Eyes- PERRL, EOMI, ENT- oropharynx clear Neck- supple, no JVD Lungs- clear to auscultation Heart- regular rhythm; no murmur Abdomen- normal bowel sounds, soft, nontender Extremities- no calf tenderness Neuro- alert, oriented x 3; PERRL, EOMI; no facial palsy; no dysarthria Skin- warm & dry Results & Data Results & Data ([facility]) Vital Signs (Past 12 Hours) Vital Signs Temp Pulse Resp BP Pulse Ox 07/28/20 21:56 36.7 C 90 16 122/80 95 Laboratory Results 07/29/20 07/29/20 Range/Units 06:19 06:19 WBC 7.02 (4.8-10.8) K/uL RBC 4.29 L (4.7-6.1) M/uL Hgb 13.5 L (14.0-18.0) g/dL Hct 39.6 L (42-52) % MCV 92.3 (80-100) fL MCH 31.5 (25-34) pg MCHC 34.1 (32-36) g/dL RDW Std Deviation 41.1 (36.4-46.3) fL RDW Coeff of Narciso 12.2 (11.5-14.5) % Plt Count 238 (130-400) K/uL MPV 9.8 (7.4-10.4) fL Sodium 140 (136-145) mmol/L Potassium 3.6 (3.5-5.1) mmol/L Chloride 109 H (98-107) mmol/L Carbon Dioxide 25 (21-32) mmol/L Anion Gap 5.0 (3-11) BUN 8 (7-18) mg/dl Creatinine 1.19 (0.6-1.4) mg/dl Est Cr Clr Drug Dosing 86.0 ml/min Est GFR ( Amer) 83.8 Est GFR (Non-Af Amer) 72.3 BUN/Creatinine Ratio 6.4 L (10-20) Glucose 85 (70-99) mg/dl Calcium 9.5 (8.5-10.1) mg/dl Total Bilirubin 1.2 H (0.2-1) mg/dl AST 8 L (15-37) U/L ALT 24 (12-78) U/L Alkaline Phosphatase 82 (45-117) U/L Total Protein 7.3 (6.4-8.2) gm/dl Albumin 3.1 L (3.4-5.0) gm/dl Globulin 4.2 H (2.5-4.0) gm/dl Albumin/Globulin Ratio 0.7 L (0.9-2) Medications Administered Current Inpatient Medications Hydromorphone HCl (Hydromorphone Inj 0.5 Mg/0.5 Ml Syr) 1 mg IV Q3H PRN PRN Reason: Pain Stop: 08/10/20 13:44 Last Admin: 07/29/20 04:31 Dose: 1 mg Documented by: Sodium Chloride (Nss 1000ml) 1,000 mls @ 100 mls/hr IV .Q10H MART Stop: 08/26/20 11:44 Last Infusion: 07/29/20 02:13 Dose: 100 mls/hr Documented by: Acetaminophen (Ofirmev) 1,000 mg in 100 mls @ 400 mls/hr IV Q8H PRN PRN Reason: Pain or Fever Stop: 07/30/20 13:44 Last Infusion: 07/27/20 21:17 Dose: Infused Documented by: Lorazepam (Ativan) 1 mg in 2 mls @ 2 mls/min IV ONE PRN; Protocol PRN Reason: EtoH Withdrawal AWSS 6-10 Stop: 08/26/20 13:54 Piperacillin Sod/Tazobactam (Sod 3.375 gm/ Dextrose) 115 mls @ 28.75 mls/hr IV Q8H MART; Protocol Stop: 08/06/20 15:59 Last Admin: 07/29/20 07:40 Dose: 28.8 mls/hr Documented by: Lorazepam (Ativan) 0.25 mg in 0.5 mls @ 0.5 mls/min IV HS PRN PRN Reason: Insomnia Stop: 08/26/20 20:49 Last Admin: 07/27/20 22:03 Dose: 0.5 mls/min Documented by: Miscellaneous Information (Piperacill/Tazobac Consult Active) 1 ea N/A UD PRN PRN Reason: Consult Stop: 08/26/20 11:32 Ondansetron HCl (Ondansetron Inj 2 Mg/Ml 2 Ml Vial) 4 mg IV Q6H PRN PRN Reason: Nausea Stop: 08/26/20 13:44
--- NOTE | 2020-07-29 10:10 | Discharge Summary ---
Date of Service July 29, 2020 Admission HPI Per Admitting Provider This is a 45yo M with no known PMH presenting with lower abdominal pain since yesterday morning. Pain is located in central lower abdomen and increases urge for defecation the patient has not had bowel movement. Pain is sharp and intermittent. Improved with pain medication given in ED but now pain back to 7/10. No fever or chills. No nausea or vomiting. No hematochezia. Increased urgency for urination as well. Denies any previous bouts of diverticulitis in the past. No history of abdominal surgeries. Does not take any home medications regularly. Denies headache, lightheadedness, cough, myalgias, chest pain, palpitations or shortness of breath. Patient is afebrile and hemodynamically stable. No leukocytosis, hemoglobin stable at 16. T bili 2.1 with T bili 0.4. UA unremarkable. Covid screen negative. CT abdomen pelvis with findings consistent with acute sigmoid diverticulitis. Mild sigmoid colon wall thickening with moderate inflammation and trace fluid. A few locules of extraluminal gas represent a tiny contained perforation. No abscess. ED physician discussed with general surgery, who recommend starting with conservative management with IV antibiotics. Will continue IV fluids, IV Zosyn and pain control with general surgery consult placed. Admission Exam Per Admitting Provider General Appearance: WD/WN, vitals as above, intermittent pain, sitting up in bed, pleasant, conversing easily Head: normocephalic, atraumatic Eyes: normal inspection, PERRL, conjunctivae normal, anicteric sclerae ENT: external ear and nose normal, oropharynx normal Neck: normal visual inspection, trachea midline, no thyromegaly Respiratory: normal respiratory effort, lungs clear to auscultation, no wheeze, rales, rhonchi. No accessory muscle use Cardiovascular: regular rate, rhythm, no murmur, normal peripheral pulses, no BLE edema. Vessels: no JVD Chest: normal inspection of chest Abdomen/GI: hypoactive bowel sounds, soft but TTP in RLQ and LLQ, no hepatosplenomegaly Extremities/Musculoskeletal: no cyanosis or clubbing, extremities motor strength 5/5 Neurologic: PERRL, EOMI, accommodation nl, no face palsy, no dysarthria, CN's II-XI intact bilaterally and moves all extremities Psychiatric: A+Ox3, euthymic affect Skin: no rashes, normal color, warm/dry Principal Diagnosis Acute diverticulitis: Alcohol use: Discharge Exam General- No acute distress Head- atraumatic Eyes- PERRL, EOMI, ENT- oropharynx clear Neck- supple, no JVD Lungs- clear to auscultation Heart- regular rhythm; no murmur Abdomen- normal bowel sounds, soft, nontender Extremities- no calf tenderness Neuro- alert, oriented x 3; PERRL, EOMI; no facial palsy; no dysarthria Skin- warm & dry Discharge Data Allergies Allergy/AdvReac Type Severity Reaction Status Date / Time No Known Allergies Allergy Unverified 09/24/16 09:32 Consultations 07/27/20 12:07 ED Decision to Admit Stat 07/27/20 13:45 Consult General Surgery Routine Ordered Studies 07/27/20 09:28 CT abd pelvis IV con only Stat IMPRESSION: 1. Findings consistent with acute sigmoid diverticulitis. Mild sigmoid colon wall thickening with moderate inflammation and trace fluid. A few locules of extraluminal gas represent a tiny contained perforation. No abscess. 2. Minimal subpleural opacities within the medial basilar segment of the right lower lobe. Atelectasis is favored however an infectious process could appear similar. 3. Hepatic steatosis. 4. Mild splenomegaly Hospital Course (1) Acute diverticulitis: 45 Yo male with no significant PMH present to the ER for severe abdominal pain CT abdomen/pelvis showed findings consistent with acute sigmoid diverticulitis. Mild sigmoid colon wall thickening with moderate inflammation and trace fluid. A few locules of extraluminal gas represent a tiny contained perforation. WBC normal Continued IV Zosyn and IVF while inpt Surgery on board recommended conservative management with IV antibiotic Tolerated diet today (low fiber for breakfast) Pt would like to go home today Will need colonoscopy in 6 to 8 weeks Continue flagyl and cipro for next 7 days Follow up w/ PCP and with general surgery (2) Alcohol use: Drinking up to 6 beers 2-3x/week No history of withdrawal symptoms Currently no sign of alcohol withdrawal DVT Ppx: SCDs Code status: FULL PCP: Dr. Almonte ([place]) Dispo: discharge home today Total Time Total Time Spent Total Time Spent (In Minutes): 35 Total Time Includes: Examination of the Patient, Discharge Planning, Medication Reconciliation and Communication With Other Providers Discharge Plan Discharge Items Patient Disposition: Home - Self-Care Reason For Visit: ACUTE DIVERTICULITIS Discharge Diagnosis: Acute diverticulitis: Alcohol use: Activity: As commented below Non-emergency contact: Primary Care Provider Call non-emergency contact if: you have any medication questions and your temperature is above 101 Follow-up/Referrals: Nikko Saucedo, [Surgeon] - Shantel Almonte MD [Outside Practitioners] - (Date & Time 08/03/2020 4:20 PM Provider Shantel Almonte MD [facility] ) Diet: Low Fiber Addtl Attending Provider Instructions: Follow up with your primary care provider within 1 week, the appointment was scheduled for you for 08/03. Follow up with general surgery Dr. Saucedo (please call for the appointment) Complete the course of the antibiotic (Ciprofloxacin + Flagyl) for 1 week. Recommend low fiber/ low residue diet for next couple of days until you feel well again. For pain you can take tylenol 1000 mg up to 3 times a day or tramadol for more severe pain as prescribed. You will need a colonoscopy in 6 to weeks Recommend counseling on alcohol cessation Seek medical attention if you symptoms worsen or if you develop fever Pending Studies at Discharge: No Stand-Alone Forms: My [facility] [employer], Smoking Cessation Medications and DC Order Prescriptions: New ciprofloxacin HCl [Cipro] 500 mg tablet 500 mg PO BID 5 Days Qty: 10 RF: 0 metronidazole [Flagyl] 500 mg tablet 500 mg PO TID 5 Days Qty: 15 RF: 0 tramadol 50 mg tablet 50 mg PO Q8H PRN (Reason: pain) Qty: 5 RF: 0 Continued benzonatate 100 mg capsule 100 mg PO DAILY RF: 0 Discharge Orders: Discharge Order (Routine); Ordered 07/29/20 Ordered By: Evert Villar Admission Data Admit Date/Time: 07/27/20 12:55 Attending Provider: Evert Villar Admit Provider: Daryl Mills Primary Care Provider: PCP,NO Other Providers: Daryl Mills ; Nikko Saucedo
== END 2020-07-29 10:43 | disposition home or self-care (01) | DRG 392 ==
LOC: ED 08:39 → 3W 12:55 → SUATTDRO 12:55 → 3W 13:28